=== PATIENT | female | born 1990 | race Caucasian/White ===

== ENCOUNTER → 2023-03-31 | Outpatient (CLI) | payer OTHER | LOC: M WHC 14:17 | PROVIDERS: ATTEND Nurse Practitioner Family | DX: N64.4 Mastodynia (principal); N63.20 Unspecified lump in the left breast, unspecified quadrant ==

== ENCOUNTER → 2023-06-25 | Outpatient (REF) | payer OTHER | LOC: M SFHCWAGY 18:14 | PROVIDERS: ATTEND Nurse Practitioner Family | DX: Z12.4 Encounter for screening for malignant neoplasm of cervix (principal) ==

== ENCOUNTER → 2025-01-31 | Outpatient (CLI) | payer OTHER | LOC: M WHC 08:28 | PROVIDERS: ATTEND Surgery | DX: N63.25 Unspecified lump in the left breast, overlapping quadrants (principal); N64.4 Mastodynia; R92.343 Mammographic extreme density, bilateral breasts; N60.11 Diffuse cystic mastopathy of right breast; N60.12 Diffuse cystic mastopathy of left breast ==

== ENCOUNTER → 2025-04-14 | Outpatient (CLI) | payer OTHER | LOC: M WHC 14:58 | PROVIDERS: ATTEND Specialist | DX: N92.0 Excessive and frequent menstruation with regular cycle (principal); R22.9 Localized swelling, mass and lump, unspecified ==